=== PATIENT | female | born 1960 | race Caucasian/White ===

== ENCOUNTER 2017-03-23 15:31 | Emergency (ER) | payer MEDICARE ==
[~2017-03-23 15:31] MED LIST: AUGMENTIN875 MG PO; CARDIZEM CD360 MG PO; DAILY MULTIPLE1 EAC1 PO; DELTASONE DPS10 MG PO; DEMADEX20 MG PO; DIFLUCAN100 MG PO; DULERA IH; DUONEB DPS3 ML IH; DUONEB DPS3 ML PO; DUONEB IH; FLEXERIL-DPS10 MG PO; GLUCAGON1 MG/ML PO; GLUCOPHAGE-DPS500 MG PO; GLUTOSE 1537.5 GM PO; KLOR-CON M2020 ME1 PO; LASIX40 M1 PO; MAALOX DPS30 ML PO; MICRO K PO; MONISTAT TP; MYCOSTATIN PWD15 GM TP; NAPROSYN250 MG PO; PROAIR IH; PROVENTIL HFA6.7 GM IH; SINGULAIR10 MG PO; SURFAK DPS240 MG PO; SURFAK240 MG PO; TAMBOCOR DPS50 MG PO; THERA1 EACH PO; TYLENOL DPS325 MG PO; TYLENOL PO; VITAMIN B-121000 MCG PO; VITAMIN C1000 MG PO; XARELTO20 MG PO; ZESTRIL10 MG PO
--- NOTE | 2017-03-29 18:55 | ER ---
ADMIT: 03/23/2017 RM/LOC: ER [facility] MR#: [id number] [address] [id number] LILY MARTINEZ [address] [place] [address] Emergency Room Report SEX: F AGE: 56 : 1960 DATE: 03/23/2017 ADDENDUM: This patient comes into the ER because she was putting gas in her car when she pivoted on her knee, felt a pop, and now has pain. She rates it as a 5/10. X-ray was negative for any fractures. She was placed in a knee immobilizer. I wrote a prescription for tramadol. She should follow up with her primary in a week if not feeling better. Please see my T-sheet. NIA Hale / Gerard Sykes MD / alma rosa JOB #: [id number] CC: Gerard Sykes MD, Attending Physician Tanner Schroeder MD, Family Physician
== END 2017-03-23 17:30 | disposition home or self-care (01) ==
LOC: ER 15:31
PROC: 2W3QX1Z Immobilization of Right Lower Leg using Splint (ICD-10-PCS; principal; 2017-03-23)
DX: S86.911A Strain of unspecified muscle(s) and tendon(s) at lower leg level, right leg, initial encounter (principal); J45.909 Unspecified asthma, uncomplicated; Z90.49 Acquired absence of other specified parts of digestive tract; X50.1XXA Overexertion from prolonged static or awkward postures, initial encounter; Y92.524 Gas station as the place of occurrence of the external cause